=== PATIENT | female | born 1980 | race Two or more races ===

== ENCOUNTER 2024-09-09 14:10 | Outpatient (CLI) | payer OTHER | END 2024-09-09 14:13 | disposition home or self-care (01) | LOC: SONOGRAMA 14:10 | PROVIDERS: ATTEND Pathology Anatomic Pathology & Clinical Pathology | DX: E04.1 Nontoxic single thyroid nodule (principal); D34 Benign neoplasm of thyroid gland; E07.89 Other specified disorders of thyroid ==